=== PATIENT | male | born 1950 | race Caucasian/White ===

== ENCOUNTER → 2019-03-23 | Outpatient (CLI) | payer MEDICARE, BC, OTHER ==
--- NOTE | 2019-03-23 17:28 | CARDNUC ---
[place] [address] CARDIAC NUCLEAR IMAGING REPORT Name: RADHA العراقي JR Room: [facility]#: [id number] Admission: 03/23/19 Attend Phys: Angelita Milner Discharge: Date of : 52 Date of Service: 03/23/19 1728 Report #: [id number] THIS REPORT FOR: //name// APPROVED REPORT Study performed: 03/23/2019 09:26:19 Exam: Nuclear Stress Test Indication: CAD s/p PR, CAD s/p PCI. Patient Location: Out-Patient Stress Tech: Meera Mi Stress Nurse: Maryam Salguero R.N. [place] Tech:VINNY Salmeron Ht: 6 ft 0 in Wt: 217 lbs BSA: 2.21 m2 BMI: 29.42 Medical History Medical History: Angina, CAD s/p PR, CAD s/p stent, HTN, Hyperlipidemia, Smoking. Medications: Metoprolol, Lisinopril, Crestor, Fenofibrate, ASA 81 Mg x2, Lovaza. Allergies: No known drug allergies Cardiac Risk Factors: Age, FHX of CAD, HTN, Hyperlipidemia, Past Smoker. Previous Cardiac Procedures: Myocardial infarction, PCI. Pretest Chest Pain Characteristics: No chest pain Exercise History: Indeterminate Physical Disabilities: Recent severe bone break with surgery and current rehab therapy. Meds Held (24 hrs): Metoprolol. Stress Test Details Stress Test: Pharmacologic stress testing performed using 0.4 mg of regadenoson per 5 mL given IV over 10 seconds. Reason for pharmacologic stress test: Recent severe bone break with surgery and current rehab therapy.. HR Resting HR: 78 bpm Max Heart Rate (APMHR): 153 bpm Max HR Achieved: 98 bpm Target HR (85% APMHR): 130 bpm % of APMHR: 64 Recovery HR: 88 bpm BP Resting BP: 135/96 [place] [address] CARDIAC NUCLEAR IMAGING REPORT Name: RADHA العراقي JR Room: [facility]#: [id number] Admission: 03/23/19 Attend Phys: Angelita Milner Discharge: Date of : 52 Date of Service: 03/23/19 1728 Report #: [id number] Max BP: 162/87 mmHg ECG Resting ECG: Sinus Rhythm Stress ECG: Sinus Rhythm ST Change: None Arrhythmia: None Recovery ECG: Sinus Rhythm Recovery ST Change: None Recovery Arrhythmia: None Clinical Reason for Termination: Completed protocol Stress Symptoms: Lightheaded Exercise duration: 00 min 00 sec Exercise capacity: 1.00 METs The patient tolerated Lexiscan infusion without significant cardiac symptoms. Nurse Comments 68 year old male s/p PR, s/p PCI, presented for sitting Lexiscan. Patient has had recent severe bone break with multiple surgeries and current rehab keeping him from safely walking on treadmill. Patient tolerated test well. Recovery unremarkable with PO caffeine, effective. Patient was escorted by staff to Nuclear Medicine for images. Patient was stable with no complaints at that time. Stress ECG Conclusion The baseline 12-lead EKG shows sinus rhythm without significant ST or T wave abnormality. EKGs obtained during and post Lexiscan infusion show sinus rhythm with no significant ST or T wave changes when compared baseline. There were no stress-induced arrhythmias. NM EXAM: Myocardial Perfusion REST/STRESS Imaging Protocol: Rest Tc-99m/Stress Tc-99m 1 day Resting Data Rest SPECT myocardial perfusion imaging was performed in supine position 30 minutes following the intravenous injection of 11.8 mCi of Tc-99m Sestamibi. Time of rest injection: 744 Date: 03/23/2019 The images were gated to evaluate regional wall motion and calculate left ventricular ejection fraction. Administration Route: IV Administration Site: [place] [address] CARDIAC NUCLEAR IMAGING REPORT Name: RADHA العراقي JR Room: [facility]#: [id number] Admission: 03/23/19 Attend Phys: Angelita Milner Discharge: Date of : 52 Date of Service: 03/23/19 1728 Report #: [id number] Pharmacologic Stress Pharmacologic stress test was performed by injecting Regadenoson 0.4 mg IV push followed by the intravenous injection of 34.5 mCi of Tc-99m Sestamibi. Time of stress injection: 934 Date: 03/23/2019 Administration Route: IV Administration Site: Right Hand Gated Stress SPECT was performed 40 minutes after stress injection. The images were gated to evaluate regional wall motion and calculate left ventricular ejection fraction. Prone imaging was performed. Study Quality Study: Good Artifact: Mild Diaphragmatic artifact Study Data At rest, the left ventricular ejection fraction was 75%.. Post stress, the left ventricular ejection was 18 2%.. TID = 0.99. Perfusion There is a small in size moderate intensity perfusion defect noted in the basal portion of the inferior wall on both stress and rest images. Wall motion in this region appears normal on gated studies. Review of the raw data suggests diaphragmatic attenuation artifact. No significant reversible defects were identified. Wall Motion Normal left ventricular wall motion. Nuclear Conclusion ECG Findings: negative for ischemia Clinical Findings: negative for ischemia Nuclear Findings: negative for ischemia Exercise Capacity: not assessed Left Ventricular Function: normal Risk Study: low Myocardial perfusion images show no defect to suggest ischemia. Left ventricular systolic function appears normal on gated studies. This appears to be a low risk study. <Conclusion> The baseline 12-lead EKG shows sinus rhythm without significant ST or T wave abnormality. EKGs obtained during and [place] [address] CARDIAC NUCLEAR IMAGING REPORT Name: RADHA العراقي JR [id number] Admission: 03/23/19 Attend Phys: Angelita Milner Discharge: Date of : 52 Date of Service: 03/23/19 1728 Report #: [id number] show sinus rhythm with no significant ST or T wave changes when compared baseline. There were no stress-induced arrhythmias. <ELECTRONICALLY SIGNED> By: North Lutz MD, FACC 03/23/191727 27 27 North Lutz MD, FACC /INF
== END ==
LOC: M.NUC 09-29 16:49
DX: I25.10 Atherosclerotic heart disease of native coronary artery without angina pectoris (principal); I25.2 Old myocardial infarction; I10 Essential (primary) hypertension; E78.5 Hyperlipidemia, unspecified; F17.200 Nicotine dependence, unspecified, uncomplicated; Z79.899 Other long term (current) drug therapy